=== PATIENT | female | born 1990 | race Two or more races ===

== ENCOUNTER 2017-09-21 17:18 | Emergency (ER) | payer SELFPAY ==
[2017-09-21 17:23] VITALS: BP 174/95; BMI 37.8
[2017-09-21 18:05] LABS: BILIRUBIN,URINE NEGATIVE (NEGATIVE); BLOOD/HEMOGLOBIN,URINE 4+ (NEGATIVE); GLUCOSE, URINE NEGATIVE (NEGATIVE); KETONES,URINE NEGATIVE (NEGATIVE); LEUKOCYTE ESTERASE ,URINE 3+ (NEGATIVE); NITRITES,URINE POSITIVE (NEGATIVE); PROTEIN,URINE 2+ (NEGATIVE); UROBILINOGEN,URINE NORMAL (NORMAL)
[2017-09-21 18:09] LABS: APPEARANCE,URINE HAZY (CLEAR); BACTERIA,URINE 1+ /HPF (NEGATIVE); COLOR,URINE YELLOW (YELLOW); RBC,URINE 0-5 /HPF (NEGATIVE); SQUAMOUS EPITHELIAL CELL,UR RARE /HPF (NEGATIVE)
--- NOTE | 2017-09-21 18:39 | DR.GENAD ---
HPI - PCP Primary Care Physician: joe Ordonez HPI Comment HPI Comment: Dysuria and suprapubic pain ongoing x 5-6 days. no fever - Complaint/Symptoms Chief Complaint:: patient stated she has been having body aches and fever and burning when she urinates for 6 days. - Nurses notes reviewed Nurses Notes Review: Yes - Source History Provided: Patient - Mode of Arrival Mode of Arrival: Ambulatory - Timing Onset of Chief Complaint: 09/15/17 PMH - PMH Past Medical History: No Past Surgical History: No - Family History History of Family Medical Conditions: Yes Family Medical History: Diabetes Mellitus - Social History Does patient currently use any type of tobacco product: No Have you used tobacco products in the last 12 months: No Type of Tobacco Use: None Does any household member use tobacco: No Alcohol Use: None Do you use any recreational Drugs:: No Lives With: Family Lives Where: Home - infectious screening In the last 2 months have you had wt loss of >10#?: NO Have you had fever, night sweats or hemotysis?: No Have you traveled outside the country in the last 6 months?: No Isolation: Standard ROS - Review of Systems Constitutional: No Symptoms Reported Eyes: No Symptoms Reported ENTM: No Symptoms Reported Respiratoy: No Symptoms Reported Cardiovascular: No Symptoms Reported Gastrointestinal/Abdominal: No Symptoms Reported Genitourinary: Dysuria, Frequency, Other (urgency; suprapubic pain). negative: Discharge, Bleeding Neurological: No Symptoms Reported Musculoskeletal: No Symptoms Reported Integumentary: No Symptoms Reported Hematologic/Lymphatic: No Symptoms Reported Endocrine: No Symptoms Reported Psychiatric: No Symptoms Reported All Other Systems: Reviewed and Negative PE - Vital Signs Vitals: Temperature 98.6 F Pulse Rate 100 Respiratory Rate 16 Blood Pressure [Left Arm] 131/69 Blood Pressure 174/95 O2 Sat by Pulse Oximetry 98 - General Limitations: No Limitations General Appearance: Alert, In No Apparent Distress - Head Head Exam: Normal Inspection - Eyes Eye exam: Normal Appearance - ENT ENT Exam: Normal Exam - Neck Neck Exam: Normal Inspection - Chest Chest Inspection: Normal Inspection - Respiratory Respiratory Exam: Normal Lung Sounds Bilat - Cardiovascular Cardiovascular Exam: Regular Rate, Normal Rhythm - Abdominal Exam Abdominal Exam: Normal Inspection, Normal Bowel Sounds, Soft Abdominal Tenderness: Suprapubic - Extremities Extremities Exam: Normal Inspection, Full ROM - Back Back Exam: Normal Inspection - Neurologic Neurological Exam: Alert, Oriented X3, CN II-XII Intact - Psychiatric Psychiatric Exam: Normal Affect, Normal Mood - Skin Skin Exam: Warm, Dry, Intact, Normal Color ROR - Labs Reviewed Laboratory: Specimen Type Clean catch urine 09/21/17 17:51 Urine Color Yellow (YELLOW) 09/21/17 17:51 Urine Appearance Hazy (CLEAR) 09/21/17 17:51 Urine pH 7.0 (5.0 - 8.0) 09/21/17 17:51 Ur Specific [place] 1.005 (1.000-1.030) 09/21/17 17:51 Urine Protein 2+ (NEGATIVE) 09/21/17 17:51 Urine Glucose (UA) Negative (NEGATIVE) 09/21/17 17:51 Urine Ketones Negative (NEGATIVE) 09/21/17 17:51 Urine Occult Blood 4+ (NEGATIVE) 09/21/17 17:51 Urine Nitrite Positive (NEGATIVE) 09/21/17 17:51 Urine Bilirubin Negative (NEGATIVE) 09/21/17 17:51 Urine Urobilinogen Normal (NORMAL) 09/21/17 17:51 Ur Leukocyte Esterase 3+ (NEGATIVE) 09/21/17 17:51 Urine RBC 0-5 /HPF (NEGATIVE) 09/21/17 17:51 Urine WBC 20-25 /HPF (NEGATIVE) 09/21/17 17:51 Ur Squamous Epith Cells Rare /HPF (NEGATIVE) 09/21/17 17:51 Urine Bacteria 1+ /HPF (NEGATIVE) 09/21/17 17:51 Ur Culture Indicated? Yes/culture set up 09/21/17 17:51 Influenza Type A (PCR) Negative (NEGATIVE) 09/21/17 17:51 Influenza Type B (PCR) Negative (NEGATIVE) 09/21/17 17:51 - Other Results Comments: U/A: Blood:3+; Nitrite: positive; L.E.: 3+; WBC: 20-25; Bact. : 1+ - Diagnosis Discharge Problem: Lower urinary tract infection - Follow ups/Referrals Follow ups/Referrals: DONNELL GARG [Primary Care Provider] - 3 days - Instructions
[2017-09-21] MEDS ORDERED: PYRIDIUM PO ONE ×2 (18:45→18:49)
[2017-09-21] MEDS ORDERED: LEVAQUIN TAB 250 MG ONE (18:49)
[2017-09-21] MEDS ORDERED: LEVAQUIN TAB 500 MG ONE (18:50)
[2017-09-22] MEDS ORDERED: LEVAQUIN TAB 500 MG PO SCH (09:00)
== END 2017-09-21 20:15 | disposition home or self-care (01) ==
LOC: ER 17:46
DX: N39.0 Urinary tract infection, site not specified (principal); B96.29 Other Escherichia coli [E. coli] as the cause of diseases classified elsewhere
CPT/HCPCS: 81001; 87086; 87088; 87186; 87502; 99282

== ENCOUNTER 2023-04-23 16:23 | Inpatient (IN) ==
[2023-04-23 16:46] VITALS: BMI 38.5
[2023-04-23 16:58] LABS: BILIRUBIN,URINE NEGATIVE (NEGATIVE); BLOOD/HEMOGLOBIN,URINE 4+ (NEGATIVE); GLUCOSE, URINE 3+ (NEGATIVE); KETONES,URINE NEGATIVE (NEGATIVE); LEUKOCYTE ESTERASE ,URINE 3+ (NEGATIVE); NITRITES,URINE NEGATIVE (NEGATIVE); PROTEIN,URINE 2+ (NEGATIVE); UROBILINOGEN,URINE 1+ (NORMAL)
[2023-04-23 17:04] LABS: APPEARANCE,URINE HAZY (CLEAR); COLOR,URINE YELLOW (YELLOW)
[2023-04-23 17:12] LABS: BACTERIA,URINE 2+ /HPF (NEGATIVE); RBC,URINE 20-30 /HPF (0-3); SQUAMOUS EPITHELIAL CELL,UR NUMEROUS /HPF (NEGATIVE)
[2023-04-23 17:13] LABS: CALCIUM OXALATE CRYSTALS,UR RARE /HPF (NEGATIVE)
[2023-04-23 17:19] LABS: BILIRUBIN,URINE NEGATIVE (NEGATIVE); BLOOD/HEMOGLOBIN,URINE 3+ (NEGATIVE); GLUCOSE, URINE 1+ (NEGATIVE); KETONES,URINE NEGATIVE (NEGATIVE); LEUKOCYTE ESTERASE ,URINE NEGATIVE (NEGATIVE); NITRITES,URINE NEGATIVE (NEGATIVE); PROTEIN,URINE 2+ (NEGATIVE); UROBILINOGEN,URINE 1+ (NORMAL)
[2023-04-23 17:31] LABS: APPEARANCE,URINE CLEAR (CLEAR); COLOR,URINE YELLOW (YELLOW)
[2023-04-23 17:32] LABS: BACTERIA,URINE TRACE /HPF (NEGATIVE); SQUAMOUS EPITHELIAL CELL,UR MODERATE /HPF (NEGATIVE)
[2023-04-23] MEDS ORDERED: D5 1/2 NS 1,000 ML 0 ML IV ONE (17:42)
[2023-04-23] MEDS ORDERED: LR 1,000 ML IV 1,000 ML IV ONE ×3 (17:48→22:26)
[2023-04-23] MEDS ORDERED: ROCEPHIN VIAL 1 GRAM ONE (17:48)
[2023-04-23] MEDS ORDERED: ROCEPHIN VIAL 1 GRAM IV ONE (17:54)
[2023-04-23] MEDS ORDERED: MAGNESIUM SULFATE 40 GRAMS IV 40 G/1,000 ML BAG IV ONE (18:01)
[2023-04-23 18:03] LABS: HEMOGLOBIN 12.2 g/dL (12.0-16.0); MEAN CORPUSCULAR HGB CONC 34.2 g/dL (33.0-35.0); MEAN PLATELET VOLUME 8.9 fL (7.4-11.0); RED CELL DISTRIBUTION WIDTH 14.7 % (11.6-16.5)
[2023-04-23] MEDS ORDERED: MAGNESIUM SULFATE 40 GRAMS IV 40 G/1,000 ML BAG IV PRN (18:09)
[2023-04-23 18:11] LABS: ALANINE AMINOTRANSFERASE 20 Units/L (12-78); ALBUMIN 2.5 g/dL (3.4-5.0); ALKALINE PHOSPHATASE 147 Units/L (46-116); ASPARTATE AMINO TRANSFERASE 11 Units/L (15-37); BLOOD UREA NITROGEN 8 mg/dL (7-18); CALCIUM 8.2 mg/dL (8.5-10.1); CARBON DIOXIDE 24.7 mmol/L (21-32); CHLORIDE 102 mmol/L (98-107); COR CA(FOR HYPOALB) 9.4 mg/dL (8.5-10.1); COR NA(FOR HYPERGLY) 139 mmol/L (136-145); CREATININE 0.59 mg/dL (0.55-1.02); GLUCOSE 139 mg/dL (65-99); POTASSIUM 4.1 mmol/L (3.5-5.1); SODIUM 138 mmol/L (136-145); TOTAL PROTEIN 7.1 g/dL (6.4-8.2); eGFR NON BLACK RACES > 60 (>60)
[2023-04-23 18:14] LABS: BASOPHILS % (AUTO) 0.2 % (0.2-1.0); EOSINOPHILS # (AUTO) 0.1 x10^3/uL (0.0-0.2); EOSINOPHILS % (AUTO) 0.5 % (0.9-2.9); HEMATOCRIT 35.7 % (36.0-47.0); LYMPHOCYTES # (AUTO) 2.3 X10^3/uL (1.3-2.9); MEAN CORPUSCULAR HEMOGLOBIN 28.7 pg (27.0-34.0); MEAN CORPUSCULAR VOLUME 83.8 fL (80.0-100.0); MONOCYTES % (AUTO) 7.3 % (0.0-13.0); NEUTROPHILS # (AUTO) 10.2 x10^3/uL (2.2-4.8); PLATELET COUNT 196 X10^3/uL (150.0-450.0); RED BLOOD COUNT 4.26 X10^6/uL (3.5-5.4); WHITE BLOOD COUNT 13.6 X10^3/uL (3.6-10.0)
[2023-04-23 18:50] LABS: AMNISURE ROM TEST NO MEMBRANES RUPTURE (NO RUPTURE)
[2023-04-23] MEDS ORDERED: FENTANYL VIAL INJ 100 mcg ONE (21:33)
[2023-04-23] MEDS ORDERED: NAROPIN EPIDURAL 0.2% 100 ML ONE (21:33)
[2023-04-23] MEDS ORDERED: D5 1/2 NS 1,000 ML 1,000 ML IV ONE (21:48)
[2023-04-23] MEDS ORDERED: EPHEDRINE SULFATE INJ ONE (21:48)
[2023-04-23] MEDS ORDERED: PITOCIN ONE (22:03)
[2023-04-23] MEDS ORDERED: BETADINE SOLN ONE (22:03)
[2023-04-23] MEDS ORDERED: D5 LR + PITOCIN 10 UNITS/L 10 UNITS/1,000 ML BAG IV ONE (22:04)
[2023-04-23] MEDS ORDERED: D5 1/2 NS 1,000 mL + PITOCIN 20 UNITS/L IV 20 UNITS/1,000 ML BAG IV ONE (22:04)
[2023-04-23] MEDS ORDERED: STADOL INJ IVP PRN (22:26)
[2023-04-23] MEDS ORDERED: DILAUDID INJ IVP PRN (22:26)
[2023-04-23] MEDS ORDERED: REGLAN INJ 10 MG VIAL IVP PRN (22:26)
[2023-04-23] MEDS ORDERED: PITOCIN IVP ONE (22:26)
[2023-04-23] MEDS ORDERED: D5 LR + PITOCIN 10 UNITS/L 10 UNITS/1,000 ML BAG IV PRN (22:26)
[2023-04-23] MEDS ORDERED: ZOFRAN INJ 4 MG VIAL IVP PRN (22:26)
[2023-04-23] MEDS ORDERED: AMPICILLIN VIAL 2 GRAM ONE (22:33)
[2023-04-23] MEDS ORDERED: NS 100 ML IV 100 ML ONE (22:33)
[2023-04-23] MEDS ORDERED: D5 1/2 NS 1,000 ML 1,000 ML IV SCH (23:00)
[2023-04-23] MEDS ORDERED: AMPICILLIN VIAL 2 GRAM 2 G in NS 100 ML IV + SPIKE MINIBAG* 100 ML IV SCH (23:00)
[2023-04-24] MEDS ORDERED: NS 100 ML IV 100 ML ONE (02:20)
[2023-04-24] MEDS ORDERED: AMPICILLIN VIAL 1 GRAM ONE (02:20)
[2023-04-24] MEDS ORDERED: AMPICILLIN VIAL 1 GRAM 1 G in NS 50 ML IV + SPIKE MINIBAG* 50 ML IV SCH (04:00)
[2023-04-24] MEDS ORDERED: MOTRIN TAB 800 MG PO PRN (04:28)
[2023-04-24] MEDS: D5 1/2 NS 1,000 ML 1,000 ML with PITOCIN 20 UNITS IV SCH ×6 (04:30→21:36)
[2023-04-24] MEDS ORDERED: MILK OF MAGNESIA PO PRN (05:07)
[2023-04-24] MEDS ORDERED: AMBIEN PO PRN (05:07)
[2023-04-24] MEDS ORDERED: ADACEL or BOOSTRIX TDaP VACCINE IM ONE ×2 (05:07→08:00)
[2023-04-24] MEDS ORDERED: DERMOPLAST PAIN RELIEF SPRAY TOP PRN (05:07)
[2023-04-24] MEDS: PRENATAL PLUS PO SCH (08:33)
[2023-04-24] MEDS: MOTRIN TAB 800 MG PO PRN (10:43)
[2023-04-25] MEDS: D5 1/2 NS 1,000 ML 1,000 ML with PITOCIN 20 UNITS IV SCH ×2 (05:10)
[2023-04-25 05:47] LABS: HEMATOCRIT 32.5 % (36.0-47.0)
[2023-04-25] MEDS: PRENATAL PLUS PO SCH (08:41)
[2023-04-25] MEDS: MOTRIN TAB 800 MG PO PRN (08:43)
[2023-04-25 11:39] VITALS: BP 132/62; PULSE 76; TEMP 98.2; O2SAT 96
[2023-04-26 17:21] LABS: SICKLE CELL SOLUBILITY Not Performed
== END 2023-04-25 10:40 | disposition home or self-care (01) | DRG 807 ==
LOC: ER 16:23 → LD 21:01 → MED/SURG 04-24 05:02
PROVIDERS: ADMIT Obstetrics & Gynecology Obstetrics; ATTEND Obstetrics & Gynecology Obstetrics
DX: O70.0 First degree perineal laceration during delivery; O71.82 Other specified trauma to perineum and vulva; Z3A.34 34 weeks gestation of pregnancy; O60.14X0 Preterm labor third trimester with preterm delivery third trimester, not applicable or unspecified; Z37.0 Single live birth

== ENCOUNTER 2023-12-21 05:00 | Observation (INO) ==
[2023-12-21 05:42] VITALS: BMI 41.5
[2023-12-21 05:48] LABS: BILIRUBIN,URINE NEGATIVE (NEGATIVE); BLOOD/HEMOGLOBIN,URINE 3+ (NEGATIVE); GLUCOSE, URINE 1+ (NEGATIVE); KETONES,URINE 4+ (NEGATIVE); LEUKOCYTE ESTERASE ,URINE 2+ (NEGATIVE); NITRITES,URINE POSITIVE (NEGATIVE); PROTEIN,URINE 2+ (NEGATIVE); UROBILINOGEN,URINE NORMAL (NORMAL)
[2023-12-21 05:52] LABS: APPEARANCE,URINE HAZY (CLEAR); COLOR,URINE YELLOW (YELLOW)
[2023-12-21] MEDS ORDERED: TYLENOL 325 MG TAB PO ONE ×2 (05:53→06:42)
[2023-12-21 05:55] LABS: BACTERIA,URINE 3+ /HPF (NEGATIVE); SQUAMOUS EPITHELIAL CELL,UR FEW /HPF (NEGATIVE)
[2023-12-21] MEDS: TYLENOL 325 MG TAB PO ONE ×2 (05:56→06:47)
[2023-12-21] MEDS ORDERED: NS 1,000 ML IV 1,000 ML ONE (06:02)
[2023-12-21] MEDS ORDERED: ROCEPHIN VIAL 1 GRAM ONE (06:07)
[2023-12-21] MEDS: NS 1,000 ML IV 1,000 ML IV ONE (06:09)
[2023-12-21] MEDS: ROCEPHIN VIAL 1 GRAM IVP ONE (06:11)
[2023-12-21 06:15] LABS: BASOPHILS % (AUTO) 0.3 % (0.2-1.0); HEMATOCRIT 32.3 % (36.0-47.0); HEMOGLOBIN 10.9 g/dL (12.0-16.0); LYMPHOCYTES # (AUTO) 0.6 X10^3/uL (1.3-2.9); LYMPHOCYTES % (AUTO) 6.4 % (21.0-51.0); MEAN CORPUSCULAR HEMOGLOBIN 29.5 pg (27.0-34.0); MEAN CORPUSCULAR HGB CONC 33.7 g/dL (33.0-35.0); MEAN CORPUSCULAR VOLUME 87.4 fL (80.0-100.0); MEAN PLATELET VOLUME 9.1 fL (7.4-11.0); MONOCYTES # (AUTO) 1.1 x10^3/uL (0.3-0.8); MONOCYTES % (AUTO) 10.5 % (0.0-13.0); NEUTROPHILS # (AUTO) 8.4 x10^3/uL (2.2-4.8); NEUTROPHILS % (AUTO) 82.8 % (42.0-75.0); PLATELET COUNT 174 X10^3/uL (150.0-450.0); RED BLOOD COUNT 3.69 X10^6/uL (3.5-5.4); RED CELL DISTRIBUTION WIDTH 14.6 % (11.6-16.5); WHITE BLOOD COUNT 10.1 X10^3/uL (3.6-10.0)
[2023-12-21 06:24] LABS: STREP A BY PCR NOT DETECTED (NOT DETECT)
[2023-12-21 06:26] LABS: ALANINE AMINOTRANSFERASE 51 Units/L (12-78); ALBUMIN 2.3 g/dL (3.4-5.0); ALKALINE PHOSPHATASE 103 Units/L (46-116); ASPARTATE AMINO TRANSFERASE 62 Units/L (15-37); BLOOD UREA NITROGEN 3 mg/dL (7-18); CARBON DIOXIDE 22.4 mmol/L (21-32); CHLORIDE 98 mmol/L (98-107); COR NA(FOR HYPERGLY) 133 mmol/L (136-145); CREATININE 0.64 mg/dL (0.55-1.02); GLUCOSE 191 mg/dL (65-99); POTASSIUM 3.4 mmol/L (3.5-5.1); SODIUM 131 mmol/L (136-145); TOTAL PROTEIN 6.8 g/dL (6.4-8.2); eGFR NON BLACK RACES > 60 (>60)
[2023-12-21 06:38] LABS: CALCIUM 7.6 mg/dL (8.5-10.1)
[2023-12-21] MEDS ORDERED: ADVIL TAB 200 MG ONE (06:42)
[2023-12-21] MEDS: MOTRIN TAB 400 MG PO ONE (06:45)
[2023-12-21] MEDS: ADVIL TAB 200 MG PO ONE (06:46)
--- NOTE | 2023-12-21 06:46 | DR.URIAD ---
HPI Time Seen Time Seen by Provider: 12/21/23 06:44 PCP Primary Care Physician: Dr. Sheth HPI Comment HPI Comment: 28 weeks with hx premature labor in with body aches/pains, fever to 104, n/v and golden x 2 days; sudden onset yesterday; she passed out once yesterday and has been unable to keep anything down since as below; people around her have had flu but none in her actual household Complaint Chief Complaint:: Patient in with c/o nausea, vomiting, fever, decreased appetite, and states she passed out yesterday around noon. Denies any pain or knowledge of hitting anything when passing out. Patient is also 28 weeks with a known history of premature delivery. Patient states mov ement has been decreased over the past 2 days. Patients MADELYN is March 15, 2024. Last appointment with Dr. Sheth was Dec 04, 2022. COVID-19 Coronavirus risk:travel/contact w/high risk person: No Has patient experienced Coronavirus symptoms: Yes Coronavirus symptoms experienced: Fever Source History Provided: Patient Mode of Arrival Mode of Arrival: Ambulatory Timing Onset of Chief Complaint: 12/20/23 Quality Shortness of Breath: none PMH PMH Past Medical History: No Past Surgical History: No Surgical History: No History Family History History of Family Medical Conditions: No Family Medical History: Diabetes Mellitus and Hypertension Social History Does patient currently use any type of tobacco product: No Have you used tobacco products in the last 12 months: No Type of Tobacco Use: None Does any household member use tobacco: No Alcohol Use: Rarely Do you use any recreational Drugs:: No Lives With: Family Travel Risk Coronavirus risk:travel/contact w/high risk person: No Has patient experienced Coronavirus symptoms: Yes Coronavirus symptoms experienced: Fever Infectious screening In the last 2 months have you had wt loss of >10#?: NO Have you had fever, night sweats or hemotysis?: No Have you traveled outside the country in the last 6 months?: No Isolation: Standard ROS Review of Systems Constitutional: No Symptoms Reported Eyes: No Symptoms Reported ENTM: No Symptoms Reported Respiratoy: See HPI Cardiovascular: No Symptoms Reported Gastrointestinal/Abdominal: See HPI Genitourinary: No Symptoms Reported Neurological: No Symptoms Reported Musculoskeletal: See HPI Integumentary: No Symptoms Reported Hematologic/Lymphatic: No Symptoms Reported Endocrine: No Symptoms Reported Psychiatric: No Symptoms Reported PE Vital Signs Vitals: Vital Signs Temperature 103.3 F Temperature 101.1 F Pulse Rate 155 Respiratory Rate 20 Respiratory Rate 20 Respiratory Rate 24 Respiratory Rate 24 Blood Pressure 124/58 O2 Sat by Pulse Oximetry 96 General Limitations: No Limitations General Appearance: Alert and In No Apparent Distress Head Head Exam: Normal Inspection Eyes Eye exam: Normal Appearance ENT ENT Exam: Normal Exam External Ear Exam: Normal External Inspection TM/Canal Exam: Bilateral: Normal Nose Exam: Normal Nose Exam Nasal Speculum Exam: Bilateral: Normal Mouth Exam: Normal Inspection Throat Exam: Normal Inspection Neck Neck Exam: Normal Inspection Chest Chest Inspection: Normal Inspection Respiratory Respiratory Exam: Normal Lung Sounds Bilat Respiratory Exam: Bilateral: Clear to Auscultation Cardiovascular Cardiovascular Exam: Regular Rate and Normal Rhythm Abdominal Exam Abdominal Exam: Normal Inspection, Normal Bowel Sounds and Soft Extremeties Extremities Exam: Normal Inspection Back Back Exam: Normal Inspection Neurologic Neurological Exam: Alert and Oriented X3 Psychiatric Psychiatric Exam: Normal Affect and Normal Mood Skin Skin Exam: Warm, Dry, Intact and Normal Color COURSE Consultation Call Returned: 07:00 (Dr Sheth accepts admission.) ROR Labs Reviewed Laboratory Results Reviewed?: Yes 12/21/23 05:55 12/21/23 05:55 Laboratory: WBC 10.1 X10^3/uL (3.6-10.0) H 12/21/23 05:55 RBC 3.69 X10^6/uL (3.5-5.4) 12/21/23 05:55 Hgb 10.9 g/dL (12.0-16.0) L 12/21/23 05:55 Hct 32.3 % (36.0-47.0) L 12/21/23 05:55 MCV 87.4 fL (80.0-100.0) 12/21/23 05:55 MCH 29.5 pg (27.0-34.0) 12/21/23 05:55 MCHC 33.7 g/dL (33.0-35.0) 12/21/23 05:55 RDW 14.6 % (11.6-16.5) 12/21/23 05:55 Plt Count 174 X10^3/uL (150.0-450.0) 12/21/23 05:55 MPV 9.1 fL (7.4-11.0) 12/21/23 05:55 Neut % (Auto) 82.8 % (42.0-75.0) H 12/21/23 05:55 Lymph % (Auto) 6.4 % (21.0-51.0) L 12/21/23 05:55 [place] % (Auto) 10.5 % (0.0-13.0) 12/21/23 05:55 Eos % (Auto) 0.0 % (0.9-2.9) L 12/21/23 05:55 Baso % (Auto) 0.3 % (0.2-1.0) 12/21/23 05:55 Neut # (Auto) 8.4 x10^3/uL (2.2-4.8) H 12/21/23 05:55 Lymph # (Auto) 0.6 X10^3/uL (1.3-2.9) L 12/21/23 05:55 [place] # (Auto) 1.1 x10^3/uL (0.3-0.8) H 12/21/23 05:55 Eos # (Auto) 0.0 x10^3/uL (0.0-0.2) 12/21/23 05:55 Baso # (Auto) 0.0 X10^3/uL (0.0-0.1) 12/21/23 05:55 Absolute Nucleated RBC 0.2 /100WBC 12/21/23 05:55 Sodium 131 mmol/L (136-145) L 12/21/23 05:55 Corrected Sodium 133 mmol/L (136-145) L 12/21/23 05:55 Potassium 3.4 mmol/L (3.5-5.1) L 12/21/23 05:55 Chloride 98 mmol/L (98-107) 12/21/23 05:55 Carbon Dioxide 22.4 mmol/L (21-32) 12/21/23 05:55 BUN 3 mg/dL (7-18) L 12/21/23 05:55 Creatinine 0.64 mg/dL (0.55-1.02) 12/21/23 05:55 Est GFR (MDRD) Af Amer > 60 (>60) 12/21/23 05:55 Est GFR (MDRD) Non-Af > 60 (>60) 12/21/23 05:55 Glucose 191 mg/dL (65-99) H 12/21/23 05:55 Calcium 7.6 mg/dL (8.5-10.1) L 12/21/23 05:55 Corrected Calcium 9.0 mg/dL (8.5-10.1) 12/21/23 05:55 Total Bilirubin 0.30 mg/dL (0.2-1.0) 12/21/23 05:55 AST 62 Units/L (15-37) H 12/21/23 05:55 ALT 51 Units/L (12-78) 12/21/23 05:55 Alkaline Phosphatase 103 Units/L (46-116) 12/21/23 05:55 Total Protein 6.8 g/dL (6.4-8.2) 12/21/23 05:55 Albumin 2.3 g/dL (3.4-5.0) L 12/21/23 05:55 Globulin 4.5 g/dL (2.5-4.5) 12/21/23 05:55 Albumin/Globulin Ratio 0.5 Ratio (1.1-2.1) L 12/21/23 05:55 Specimen Type Clean catch urine 12/21/23 05:40 Urine Color Yellow (YELLOW) 12/21/23 05:40 Urine Appearance Hazy (CLEAR) 12/21/23 05:40 Urine pH 6.0 (5.0 - 8.0) 12/21/23 05:40 Ur Specific [place] 1.015 (1.000-1.030) 12/21/23 05:40 Urine Protein 2+ (NEGATIVE) 12/21/23 05:40 Urine Glucose (UA) 1+ (NEGATIVE) 12/21/23 05:40 Urine Ketones 4+ (NEGATIVE) 12/21/23 05:40 Urine Blood 3+ (NEGATIVE) 12/21/23 05:40 Urine Nitrite Positive (NEGATIVE) 12/21/23 05:40 Urine Bilirubin Negative (NEGATIVE) 12/21/23 05:40 Urine Urobilinogen Normal (NORMAL) 12/21/23 05:40 Ur Leukocyte Esterase 2+ (NEGATIVE) 12/21/23 05:40 Urine RBC 3-5 /HPF (0-3) A 12/21/23 05:40 Urine WBC 10-20 /HPF (0-5) A 12/21/23 05:40 Ur Squamous Epith Cells Few /HPF (NEGATIVE) 12/21/23 05:40 Urine Bacteria 3+ /HPF (NEGATIVE) 12/21/23 05:40 Ur Culture Indicated? Yes/culture set up 12/21/23 05:40 SARS-CoV-2 (PCR) Negative (NEGATIVE) 12/21/23 05:49 Influenza Type A (PCR) Positive (NEGATIVE) A 12/21/23 05:49 Influenza Type B (PCR) Negative (NEGATIVE) 12/21/23 05:49 RSV (PCR) Negative (NEGATIVE) 12/21/23 05:49 S. pyogenes (TEM-PCR) Not detected (NOT DETECT) 12/21/23 05:49 Opioid Opioid Risk Tool Age ([place] box if 16-45): No History of Preadolescent Sexual Abuse: No Total: 0 Total Score Risk Category: Low Risk Copyright: Dimas PINO predicting aberrant behaviors Discharge Plan Diagnosis Discharge Problem: Pyelonephritis, Influenza A, Acute dehydration Syncope Qualifiers: Syncope type: unspecified Qualified Code(s): R55 - Syncope and collapse Discharge Plan Patient Disposition: 09 ADMITTED INPATIENT Condition: Stable
[2023-12-21] MEDS ORDERED: ZOFRAN INJ 4 MG VIAL IVP PRN (07:10)
[2023-12-21] MEDS ORDERED: OFIRMEV IV 1000 MG VIAL 1,000 MG/100 ML VIAL IV PRN (07:12)
[2023-12-21] MEDS: NS 1,000 ML IV 1,000 ML IV SCH (09:23)
[2023-12-21] MEDS: ROCEPHIN VIAL 1 GRAM 1 G in NS 100 ML IV 100 ML IV SCH (09:24)
[2023-12-21] MEDS ORDERED: PHENERGAN TAB 25 MG PO PRN (09:45)
[2023-12-21] MEDS: TAMIFLU PO SCH (09:57)
[2023-12-21] MEDS: K-DUR TAB 20 MEQ PO NR (10:24)
[2023-12-22] MEDS: TYLENOL 500 MG TAB EXTRA STRENGTH PO PRN (00:57)
[2023-12-22 04:07] VITALS: RESP 20
[2023-12-22 05:42] LABS: BASOPHILS % (AUTO) 0.3 % (0.2-1.0); EOSINOPHILS % (AUTO) 0.2 % (0.9-2.9); HEMOGLOBIN 9.2 g/dL (12.0-16.0); LYMPHOCYTES # (AUTO) 1.5 X10^3/uL (1.3-2.9); LYMPHOCYTES % (AUTO) 19.5 % (21.0-51.0); MEAN CORPUSCULAR HEMOGLOBIN 29.8 pg (27.0-34.0); MEAN CORPUSCULAR HGB CONC 33.9 g/dL (33.0-35.0); MEAN PLATELET VOLUME 9.3 fL (7.4-11.0); MONOCYTES # (AUTO) 1.1 x10^3/uL (0.3-0.8); MONOCYTES % (AUTO) 14.5 % (0.0-13.0); NEUTROPHILS # (AUTO) 4.9 x10^3/uL (2.2-4.8); NEUTROPHILS % (AUTO) 65.5 % (42.0-75.0); PLATELET COUNT 136 X10^3/uL (150.0-450.0); RED BLOOD COUNT 3.07 X10^6/uL (3.5-5.4); RED CELL DISTRIBUTION WIDTH 14.4 % (11.6-16.5); WHITE BLOOD COUNT 7.4 X10^3/uL (3.6-10.0)
[2023-12-22 06:03] LABS: ALANINE AMINOTRANSFERASE 38 Units/L (12-78); ALBUMIN 1.8 g/dL (3.4-5.0); ALKALINE PHOSPHATASE 97 Units/L (46-116); ASPARTATE AMINO TRANSFERASE 39 Units/L (15-37); BLOOD UREA NITROGEN 4 mg/dL (7-18); CALCIUM 7.5 mg/dL (8.5-10.1); CARBON DIOXIDE 25.1 mmol/L (21-32); CHLORIDE 103 mmol/L (98-107); COR CA(FOR HYPOALB) 9.3 mg/dL (8.5-10.1); COR NA(FOR HYPERGLY) 137 mmol/L (136-145); CREATININE 0.55 mg/dL (0.55-1.02); GLUCOSE 125 mg/dL (65-99); MAGNESIUM 1.3 mg/dL (2.0-2.9); POTASSIUM 3.5 mmol/L (3.5-5.1); SODIUM 136 mmol/L (136-145); TOTAL PROTEIN 5.6 g/dL (6.4-8.2); eGFR NON BLACK RACES > 60 (>60)
[2023-12-22] MEDS ORDERED: CONSULT PHARMACY - POTASSIUM & MAGNESIUM XX SCH (07:00)
[2023-12-22 07:54] VITALS: BP 112/59; PULSE 102; TEMP 98.3; O2SAT 98
[2023-12-22] MEDS: K-DUR TAB 20 MEQ PO SCH (08:33)
[2023-12-22] MEDS: NS 1,000 ML IV 1,000 ML with MAGNESIUM SULFATE 50% INJ VIAL 2 G IV SCH (08:33)
[2023-12-22] MEDS ORDERED: ROCEPHIN VIAL 1 GRAM 1 G in NS 100 ML IV 100 ML IV SCH (09:00)
== END 2023-12-22 10:55 | disposition home or self-care (01) ==
LOC: ER 05:06 → MED/SURG 05:06
PROVIDERS: ADMIT Obstetrics & Gynecology Obstetrics; ATTEND Obstetrics & Gynecology Obstetrics
DX: R73.09 Other abnormal glucose; O26.892 Other specified pregnancy related conditions, second trimester; Z20.822 Contact with and (suspected) exposure to COVID-19; R55 Syncope and collapse; R51.9 Headache, unspecified; E87.6 Hypokalemia; J10.1 Influenza due to other identified influenza virus with other respiratory manifestations; N39.0 Urinary tract infection, site not specified; E87.1 Hypo-osmolality and hyponatremia; Z3A.27 27 weeks gestation of pregnancy; O23.42 Unspecified infection of urinary tract in pregnancy, second trimester; E83.42 Hypomagnesemia; O09.212 Supervision of pregnancy with history of pre-term labor, second trimester

== ENCOUNTER 2024-02-10 11:24 | Inpatient (IN) ==
[2024-02-10] MEDS ORDERED: REGLAN INJ 10 MG VIAL IVP PRN (12:34)
[2024-02-10] MEDS ORDERED: MAGNESIUM SULFATE 50% INJ VIAL IV ONE (12:34)
[2024-02-10] MEDS ORDERED: ZOFRAN INJ 4 MG VIAL IVP PRN (12:34)
[2024-02-10] MEDS ORDERED: NUBAIN INJ 20 MG AMP IVP PRN (12:34)
[2024-02-10] MEDS: NS 1,000 ML IV 1,000 ML IV SCH (12:46)
[2024-02-10] MEDS: MAGNESIUM SULFATE 40 GRAMS IV 40 G/1,000 ML BAG IV PRN (12:49)
[2024-02-10 13:25] LABS: BASOPHILS % (AUTO) 0.4 % (0.2-1.0); EOSINOPHILS % (AUTO) 0.4 % (0.9-2.9); HEMATOCRIT 32.7 % (36.0-47.0); HEMOGLOBIN 10.9 g/dL (12.0-16.0); LYMPHOCYTES % (AUTO) 20.1 % (21.0-51.0); MEAN CORPUSCULAR HEMOGLOBIN 27.9 pg (27.0-34.0); MEAN CORPUSCULAR HGB CONC 33.4 g/dL (33.0-35.0); MEAN CORPUSCULAR VOLUME 83.4 fL (80.0-100.0); MEAN PLATELET VOLUME 9.2 fL (7.4-11.0); MONOCYTES # (AUTO) 0.6 x10^3/uL (0.3-0.8); MONOCYTES % (AUTO) 5.8 % (0.0-13.0); NEUTROPHILS # (AUTO) 7.5 x10^3/uL (2.2-4.8); NEUTROPHILS % (AUTO) 73.3 % (42.0-75.0); PLATELET COUNT 191 X10^3/uL (150.0-450.0); RED BLOOD COUNT 3.93 X10^6/uL (3.5-5.4); RED CELL DISTRIBUTION WIDTH 16.1 % (11.6-16.5); WHITE BLOOD COUNT 10.2 X10^3/uL (3.6-10.0)
[2024-02-10 13:35] LABS: BLOOD UREA NITROGEN 7 mg/dL (7-18); CALCIUM 8.5 mg/dL (8.5-10.1); CARBON DIOXIDE 23.5 mmol/L (21-32); CHLORIDE 106 mmol/L (98-107); CREATININE 0.42 mg/dL (0.55-1.02); GLUCOSE 104 mg/dL (65-99); SODIUM 139 mmol/L (136-145); eGFR NON BLACK RACES > 60 (>60)
[2024-02-10 14:01] LABS: BILIRUBIN,URINE NEGATIVE (NEGATIVE); BLOOD/HEMOGLOBIN,URINE 2+ (NEGATIVE); GLUCOSE, URINE NEGATIVE (NEGATIVE); KETONES,URINE 2+ (NEGATIVE); LEUKOCYTE ESTERASE ,URINE 3+ (NEGATIVE); NITRITES,URINE NEGATIVE (NEGATIVE); PROTEIN,URINE 2+ (NEGATIVE); UROBILINOGEN,URINE NORMAL (NORMAL)
[2024-02-10] MEDS ORDERED: ROCEPHIN VIAL 1 GRAM ONE (14:13)
[2024-02-10] MEDS ORDERED: CELESTONE SOLUSPAN IM ONE (14:15)
[2024-02-10 14:16] LABS: APPEARANCE,URINE CLOUDY (CLEAR); BACTERIA,URINE 2+ /HPF (NEGATIVE); COLOR,URINE YELLOW (YELLOW); SQUAMOUS EPITHELIAL CELL,UR NUMEROUS /HPF (NEGATIVE)
[2024-02-10 14:17] LABS: YEAST,URINE FEW /HPF (NEGATIVE)
[2024-02-10] MEDS: ROCEPHIN VIAL 1 GRAM 1 G in NS 100 ML IV 100 ML IV SCH (14:23)
[2024-02-10] MEDS: CELESTONE SOLUSPAN IM ONE (14:26)
[2024-02-10] MEDS: LR 1,000 ML IV 1,000 ML IV ONE ×2 (15:27)
[2024-02-10] MEDS: ZOFRAN INJ 4 MG VIAL ONE (15:30)
--- NOTE | 2024-02-10 16:08 | US ---
EXAM: OB GREATER THAN 14 WEEKS HISTORY: EFW and anatomy survey - COMPARISON: None. TECHNIQUE: Multiple pompa scale and color flow Doppler images of the pelvis were obtained with focused evaluation of the fetus. FINDINGS: A viable single intrauterine is identified with heart tones of 141 beats per minute. A cephalic presentation is observed with a posterior and fundal placenta.No evidence of previa. Marycruz l amniotic fluid volume is observed with an BASIL of 8.9 cm. Maternal adnexa is obscured due to gravid uterus. Evaluation of the anatomy reveals no hydrocephalus or posterior fossa cyst. Visualized portions of the spine appear normal. Four chamber heart, stomach, kidneys, bladder,and three vessel cord appe ar normal. Visualized portions of the four extremities display no abnormalities. The BPD is 8.5 cm corresponding to and estimated gestational age of 34 weeks 3 days. The HC is 28.8 cm corresponding to and estimated gestational age of 31 weeks 5 days. The AC is 32.0 cm corresponding to and estimated gestational age of 35 weeks 6 days. The FL is 6.1 cm corresponding to and estimated gestational age of 31 weeks 4 days. Estimated weight is 2364 g, 18th percentile. IMPRESSION: A viable single intrauterine with an average ultrasound age of 33 weeks 3 days correspondin g to an estimated date of delivery of 03/27/2024. No abnormalities are seen. THIS IS AN ELECTRONICALLY VERIFIED FINAL REPORT 02/10/2024 4:05 PM - Electronically signed by Todd Marmolejo MD
[2024-02-10] MEDS: NAROPIN EPIDURAL 0.2% 100 ML ONE (16:20)
[2024-02-10] MEDS: PITOCIN IVP ONE (20:33)
[2024-02-10] MEDS: OXYTOCIN 20 UNIT/1,000 ML-NS 20 UNIT/1,000 ML PLAST..BAG IV SCH (20:33)
[2024-02-10] MEDS ORDERED: MILK OF MAGNESIA PO PRN (20:56)
[2024-02-10] MEDS ORDERED: MOTRIN TAB 800 MG PO PRN (20:56)
[2024-02-10] MEDS ORDERED: AMBIEN PO PRN (20:56)
[2024-02-10] MEDS: DERMOPLAST PAIN RELIEF SPRAY TOP PRN (23:00)
[2024-02-10] MEDS: MOTRIN TAB 800 MG PO PRN (23:03)
[2024-02-11] MEDS: PITOCIN ONE ×2 (01:25→07:21)
[2024-02-11] MEDS: D5 1/2 NS 1,000 ML 1,000 ML IV ONE (01:26)
[2024-02-11 05:10] LABS: HEMATOCRIT 30.7 % (36.0-47.0); HEMOGLOBIN 10.1 g/dL (12.0-16.0)
[2024-02-11] MEDS: NS 100 ML IV 100 ML ONE (07:20)
[2024-02-11] MEDS: FENTANYL VIAL INJ 100 mcg ONE (07:21)
[2024-02-11] MEDS: PRENATAL PLUS PO SCH (08:30)
[2024-02-12 04:20] VITALS: O2SAT 99
[2024-02-12 07:58] VITALS: BP 116/58; PULSE 89; RESP 20; TEMP 97.7
[2024-02-16 07:12] LABS: SICKLE CELL SOLUBILITY Not Performed
== END 2024-02-12 11:05 | disposition home or self-care (01) | DRG 807 ==
LOC: LD 12:21 → MED/SURG 21:51
PROVIDERS: ADMIT Obstetrics & Gynecology Obstetrics; ATTEND Obstetrics & Gynecology Obstetrics